=== PATIENT | male | born 1960 | race Caucasian/White ===

== ENCOUNTER 2024-02-22 10:31 | Emergency (ER) | payer OTHER, SELFPAY ==
[2024-02-22 10:48] VITALS: BP 146/88
[2024-02-22 11:55] VITALS: BP 154/80
[2024-02-22 12:00] VITALS: BP 139/80
[2024-02-22 12:06] LABS: COVID-19 Antigen Negative (Negative)
--- NOTE | 2024-02-22 12:11 | ED.GENMED ---
History of Present Illness
General
Chief Complaint: Cough
Source: patient
Exam Limitations: none
Time Seen by Provider: 02/22/24 11:48
Nursing documentation reviewed up to this point in time: agreed with
History of Present Illness
History of Present Illness:
63-year-old male with a past medical history of hypertension, hyperlipidemia, diabetes who presents to the emergency room for evaluation of cough. Patient reports onset of symptoms about a week ago and they have been constant since that time. He
reports a hacking nonproductive cough with occasional coughing fits where he has trouble catching his breath. He says that he has some soreness in his chest when he coughs but no significant chest pain at rest. He denies any shortness of breath
aside difficulty catching his breath when he coughs. He denies any fevers or chills. He denies any rhinorrhea or sore throat. He denies any swelling in the legs. He denies any GI issues. He denies any known sick contacts. Denies smoking,
drugs, alcohol use.
Past History
Past History
ED Past Medical History: None
ED Past Surgical History: None
Review of Systems
Review of Systems
All Other Systems: ROS reviewed and negative except as documented in HPI and ROS
Constitutional: Denies fever or chills
EENT: Denies sore throat or runny nose
Respiratory: Reports cough; Denies trouble breathing
Cardiac: Denies chest pain, diaphoresis or palpitations
ABD/GI: Denies abdominal pain, nausea or vomiting
: Denies dysuria, frequency or flank pain
Musculoskeletal: Denies edema, neck pain or back pain
Neurological: Denies dizzy or headache
Phy Exam
Physical Exam
Physical Exam:
General: Awake, alert, oriented x3; no acute distress
Head: Normocephalic, atraumatic
Eyes: Conjunctiva normal, sclera anicteric
Nose: No swelling the turbinates
Throat: Airway intact, handling secretions, no tonsillar erythema, midline uvula
Neck: Trachea midline, supple without meningismus
Lungs: Coughs with inspiration, faint scattered expiratory wheezing but no focal rales or rhonchi; normal respiratory rate, normal pulse ox on room air, normal work of breathing
Heart: Regular rate and rhythm, no murmurs, gallops, or rubs appreciated
Abd: Soft, non distended, nontender
Neuro: No gross deficits
Extremities: No edema in extremities, equal pulses in all extremities
Scores
Heart Failure Risk
Heart Failure Risk Score: Not Applicable
Heart Score for Chest Pain Patients
STEMI patient?: Not applicable
Withdrawal Assessment of Alcohol
Withdrawal Assessment Completed?: Not applicable
Course
Orders/Labs/Results
Orders:
Orders
02/22/24 11:35
CXR2 [CR Chest - 2 Views ] Urgent
Comment:
Reason For Exam: cough
02/22/24 11:41
COVID-19 Antigen Urgent
Source: Nasal Swab
02/22/24 12:07
Ipratropium/Albuterol Sulfate [Duoneb] 3 ml INH R NOW STA
02/22/24 12:16
Prednisone [Deltasone] 50 mg PO NOW STA
02/22/24 13:17
Complete Blood Count/With Diff Urgent
Comprehensive Metabolic Panel Urgent
02/22/24 13:59
Amoxicillin 875 mg/Clav 125 mg [Augmentin 875 mg/125 mg] 1 tablet PO NOW STA
Doxycycline [Vibramycin] 100 mg PO NOW STA
Abnormal Lab Results
02/22/24
13:17
RBC 4.52 L 10^6/uL
(4.70-6.10)
MCH 31.2 H pg
(27.0-31.0)
Absolute Neuts (auto) 7.0 H 10^3/uL
(1.4-6.5)
Absolute Lymphs (auto) 1.0 L 10^3/uL
(1.2-3.4)
Neutrophils % 79.3 H %
(42.2-75.2)
Lymphocytes % 11.7 L %
(20.5-51.1)
Glucose 170 H mg/dl
(70-99)
Total Protein 6.2 L g/dl
(6.3-8.2)
02/22/24 13:17
02/22/24 13:17
Vital Signs
Initial and Last Documented VS:
Initial Vital Signs
Temp Pulse Resp BP Pulse Ox
37.7 C 85 18 146/88 98
02/22/24 10:48 02/22/24 10:48 02/22/24 10:48 02/22/24 10:48 02/22/24 10:48
Last Documented Vital Signs
Temp Pulse Resp BP Pulse Ox
37.7 C 92 18 152/75 93
02/22/24 10:48 02/22/24 12:23 02/22/24 12:23 02/22/24 13:00 02/22/24 13:01
MDM/Problems Addressed
Differential Diagnosis Includes:
Bronchitis, pneumonia, CHF less likely
MDM/Problems Addressed:
63-year-old male presents for evaluation of hacking nonproductive cough for the past week. Vital signs normal here. Exam as above. Suspect likely acute bronchitis. Will swab for COVID. Check chest x-ray rule out pneumonia. Will treat with a
DuoNeb and steroid. Reassess after the above.
Chest x-ray reviewed shows left lower lobe pneumonia. Heart rate 80s low 90s but normal respiratory rate, normal pulse ox, afebrile and normotensive. Given his age we will check basic blood work but likely stable for outpatient treatment of his
pneumonia.
CBC and CMP unremarkable. Patient has been stable in ED monitoring. CURB 65 score 0. Reasonable candidate for discharge on oral antibiotics as an outpatient. Advised to follow-up with PCP for follow-up this week and consideration for repeat
chest x-ray.
*Radiology
Radiology exam reviewed: preliminary read by ED provider and radiology read reviewed
*Pulse Oximetry
Patient hypoxic: no
*Critical Care Note
Total Time (30-74mins, 75-104mins- exclusive of procedures): Not Applicable
Data Reviewed
Source: patient and records
ED Attending Note
-
Portions of this chart may have been created with voice recognition software.� Occasional wrong word or��sound alike� substitutions may have occurred due to the inherent limitations of voice recognition software.
Discharge Plan
Departure
Patient Disposition: Home (Routine Discharge)
Date of Disposition: 02/22/24
Time of Disposition: 13:59
Patient with high blood pressure during this ER visit?: Yes
Discharge Problem:
Pneumonia
Instructions: Pneumonia, Adult (DC)
Prescriptions:
New
amoxicillin-pot clavulanate 875-125 mg tablet
1 tab PO BID Qty: 14 0RF
doxycycline hyclate 100 mg tablet
100 mg PO BID Qty: 14 0RF
albuterol sulfate 90 mcg/actuation HFA aerosol inhaler
2 puff inhalation Q6H PRN (Reason: shortness of breath or wheezing) Qty: 6.7 0RF
guaifenesin 600 mg tablet extended release 12hr
600 mg PO Q12H PRN (Reason: Cough) Qty: 20 0RF
No Action
celecoxib 200 mg capsule
200 mg PO DAILY
enalapril maleate 5 mg tablet
5 mg PO DAILY
simvastatin 40 mg tablet
40 mg PO DAILY
oxybutynin chloride 5 mg Tablet
5 mg PO DAILY
finasteride 5 mg tablet
5 mg PO DAILY
(DME) Contour Next Test Strips Strip
Qty: 60 0RF
Rx Instructions:
Pt testing 2 times a day
(DME) lancets [Color Lancets] 21 gauge Misc
Qty: 60 0RF
Rx Instructions:
Pt testing 2 times a day
metformin 1,000 mg Tablet
1,000 mg PO .AFTERNOON
metformin 500 mg tablet
500 mg PO DAILY
Referrals:
Carlitos Salazar MD [Family Provider] - Follow up in 2-3 days
Activity Restrictions/Additional Instructions:
Thank you for visiting the Emergency Department at [facility].
1. Please schedule a follow up appointment as directed. Call first thing tomorrow morning to make an appointment.
2. If indicated, please take your medications as instructed and indicated on discharge paperwork.
3. If any of your symptoms do not improve, or persist, or become more severe within 6-12 hours, please return to the emergency department for further care.
4. Please return to the emergency department if you develop a headache, neck pain/stiffness, fever greater than 100.4F, chest pain, shortness of breath, persistent nausea, vomiting, slurred speech, difficulty walking, numbness/tingling, weakness,
signs of infection or any other symptoms that are worrisome to you.
Please call [phone] if you have any questions.
Interventions
Interventions:
*Risk Screen - Suicide Last Done: 02/22/24 10:48
*General Assessment Last Done: 02/22/24 10:48
*Neglect/Abuse Screening Last Done: 02/22/24 10:48
ED- Fall Risk Assessment Last Done: 02/22/24 12:25
*ED COVID-19 Vaccine History Last Done: 02/22/24 10:48
ED- Pulmonary Assessment Last Done: 02/22/24 12:24
Discharge Date and Time
Print Language: TURKISH
[2024-02-22] MEDS: DUONEB 3 ML INH (12:13)
[2024-02-22] MEDS: DELTASONE 50 MG PO (12:21)
[2024-02-22 12:23] VITALS: BMI 27.1
[2024-02-22 13:00] VITALS: BP 152/75
[2024-02-22 13:29] LABS: % Basophils 0.3 % (0-2); % Eosinophils 1.3 % (0-6); % Immature Granulocytes 0.5 % (0-0.5); % Lymphocytes 11.7 % (20.5-51.1); % Monocytes 6.9 % (1.7-9.3); % Neutrophils 79.3 % (42.2-75.2); Absolute Eosinophils 0.1 10^3/uL (0-0.7); Absolute Monocytes 0.6 10^3/uL (0.1-0.6); Hematocrit 39.8 % (39.0-52.0); Hemoglobin 14.1 g/dL (13.0-18.0); Mean Corp Hgb Conc. 35.4 g/dL (33.0-37.0); Mean Corpuscular Hgb 31.2 pg (27.0-31.0); Mean Corpuscular Volume 88.1 fL (80.0-94.0); Nucleated Red Blood Cells % 0 % (-); Platelet Count 323 10^3/uL (130-400); Red Blood Cell Count 4.52 10^6/uL (4.70-6.10); Red Cell Dist. Width 12.4 % (11.5-14.5); White Blood Cell Count 8.8 10^3/uL (4.8-10.8)
[2024-02-22 13:41] LABS: ALT (SGPT) 38 U/L (0-50); AST (SGOT) 31 U/L (17-59); Albumin 3.7 g/dl (3.5-5.0); Alkaline Phosphatase 67 U/L (38-126); Blood Urea Nitrogen 15 mg/dl (9-20); Calcium 8.8 mg/dl (8.4-10.2); Carbon Dioxide 26 mmol/L (22-30); Chloride 105 mmol/L (98-107); Estimated Creatinine Clearance 119 ml/min; Glucose 170 mg/dl (70-99); Potassium 3.7 mmol/L (3.5-5.1); Sodium 137 mmol/L (135-145); Total Bilirubin 0.7 mg/dl (0.2-1.3); Total Protein 6.2 g/dl (6.3-8.2); eGFR > 60.00
[2024-02-22 14:00] VITALS: BP 141/73
[2024-02-22] MEDS: VIBRAMYCIN 100 MG PO (14:09)
[2024-02-22] MEDS: AUGMENTIN 875 MG/125 MG 1 TABLET PO (14:09)
== END 2024-02-22 14:34 | disposition home or self-care (01) ==
LOC: EMR 10:31
PROVIDERS: EMERGENCY PHYSICIAN Emergency Medicine; FAMILY PHYSICIAN Family Medicine
DX: J18.9 Pneumonia, unspecified organism (principal); Z11.52 Encounter for screening for COVID-19; E11.9 Type 2 diabetes mellitus without complications; E78.5 Hyperlipidemia, unspecified; I10 Essential (primary) hypertension; M19.90 Unspecified osteoarthritis, unspecified site; N40.0 Benign prostatic hyperplasia without lower urinary tract symptoms; Z79.84 Long term (current) use of oral hypoglycemic drugs
CPT/HCPCS: 99283; 94640; 71046; 80053; 85025; 87811

== ENCOUNTER 2024-11-17 06:15 | Day surgery (SDC) | payer OTHER, SELFPAY ==
[2024-11-06 14:13] VITALS: BMI 27.0
[2024-11-06 14:25] LABS: % Basophils 1.5 % (0-2); % Eosinophils 2.3 % (0-6); % Immature Granulocytes 0.2 % (0-0.5); % Lymphocytes 25.4 % (20.5-51.1); % Monocytes 9.4 % (1.7-9.3); % Neutrophils 61.2 % (42.2-75.2); Absolute Basophils 0.1 10^3/uL (0-0.2); Absolute Eosinophils 0.2 10^3/uL (0-0.7); Absolute Lymphocytes 1.7 10^3/uL (1.2-3.4); Absolute Monocytes 0.6 10^3/uL (0.1-0.6); Hematocrit 46.2 % (39.0-52.0); Hemoglobin 15.8 g/dL (13.0-18.0); Mean Corp Hgb Conc. 34.2 g/dL (33.0-37.0); Mean Corpuscular Hgb 31.7 pg (27.0-31.0); Mean Corpuscular Volume 92.6 fL (80.0-94.0); Mean Platelet Volume 9.9 fL (7.4-10.4); Nucleated Red Blood Cells % 0 % (-); Platelet Count 259 10^3/uL (130-400); Red Blood Cell Count 4.99 10^6/uL (4.70-6.10); Red Cell Dist. Width 11.9 % (11.5-14.5); White Blood Cell Count 6.6 10^3/uL (4.8-10.8)
[2024-11-06 14:56] LABS: Blood Urea Nitrogen 39 mg/dl (9-20); Carbon Dioxide 30 mmol/L (22-30); Chloride 106 mmol/L (98-107); Estimated Creatinine Clearance 94 ml/min; Glucose 140 mg/dl (70-99); Potassium 4.3 mmol/L (3.5-5.1); Sodium 142 mmol/L (135-145); eGFR > 60.00
[2024-11-17] VITALS (9 sets, daily range): BP systolic 137–151; BP diastolic 67–86; BMI 27.0
[2024-11-17] MEDS: CELEBREX 200 MG PO (09:11)
[2024-11-17] MEDS: TYLENOL 1000 MG PO (09:11)
[2024-11-17] MEDS: NORMOSOL-R/PLASMALYTE-A 1000 IV (09:12)
[2024-11-17 09:23] LABS: Glucose - Point of Care 156 mg/dl (70-99)
[2024-11-17 13:04] LABS: Glucose - Point of Care 233 mg/dl (70-99)
[2024-11-17] MEDS: NOVOLOG vial 1 UNITS SC (13:14)
== END 2024-11-17 15:05 | disposition home or self-care (01) ==
LOC: SDS 06:15
PROVIDERS: ATTENDING PHYSICIAN Orthopaedic Surgery Hand Surgery; FAMILY PHYSICIAN Family Medicine
DX: M75.121 Complete rotator cuff tear or rupture of right shoulder, not specified as traumatic (principal); M75.41 Impingement syndrome of right shoulder; M19.011 Primary osteoarthritis, right shoulder; M75.21 Bicipital tendinitis, right shoulder
CPT/HCPCS: 29827; 29826; 29828; 36415; 80048; 82962; 85025; 87070; 93005